=== PATIENT | male | born 1990 | race African-American/Black ===

== ENCOUNTER 2023-10-02 08:52 | Emergency (ER) | payer OTHER ==
[2023-10-02 09:21] VITALS: RESP 18
[2023-10-02] MEDS: KETOROLAC 15 MG/ML 1 ML VIAL IM STA (09:34)
[2023-10-02] MEDS: MORPHINE SULFATE 4 MG/ML SYRINGE IM STA (09:36)
--- NOTE | 2023-10-02 09:40 | ED ---
GI Bleed HPI - General Chief complaint: GI Bleed Stated complaint: Urogenital Time Seen by Provider: 10/02/23 08:56 Source: patient, RN notes reviewed Mode of arrival: ambulatory Limitations: no limitations - History of Present Illness Initial comments: This is a 33-year-old male who presents to the emergency department for hemorrhoids. Patient states that he has been dealing with hemorrhoids for years, but was incarcerated for 7 years and has not been able to deal with them until he was released a few months ago. He went to urgent care about a month ago and was given a cream for the hemorrhoids. States that this has been somewhat helpful for his pain, however they are still very bothersome. He has bleeding in his undergarments as well from the hemorrhoids. He has never had surgery or had a surgical consultation regarding the hemorrhoids. - Related Data Previous Rx's Medication Instructions Recorded Ibuprofen [Motrin] 800 mg PO Q8H PRN #30 tab 10/02/23 Lidocaine [Lidocaine Rectal Cream 1 applic TOPICAL TID PRN #30 gram 10/02/23 5%] Phenyleph/Mineral Oil/Petrolat 1 applic RECTAL QID #28 gm 10/02/23 [Preparation H Ointment] witch Tyrell [Preparation H 1 applic TOPICAL DIRECTED #100 10/02/23 Pad/Wipe] pad Allergies Allergy/AdvReac Type Severity Reaction Status Date / Time No Known Allergies Allergy Verified 10/02/23 08:55 Review of Systems ROS Statement: Those systems with pertinent positive or pertinent negative responses have been documented in the HPI. ROS Other: All systems not noted in ROS Statement are negative. Past Medical History Past Medical History: No Reported History History of Any Multi-Drug Resistant Organisms: None Reported Past Surgical History: No Surgical Hx Reported Past Psychological History: No Psychological Hx Reported General Exam Limitations: no limitations General appearance: alert, in no apparent distress Head exam: Present: atraumatic, normocephalic, normal inspection Respiratory exam: Present: normal lung sounds bilaterally. Absent: respiratory distress, wheezes, rales, rhonchi, stridor Cardiovascular Exam: Present: regular rate, normal rhythm, normal heart sounds. Absent: systolic murmur, diastolic murmur, rubs, gallop, clicks Extremities exam: Present: other (Several external hemorrhoids without any evidence of thrombosis. No active bleeding.) Neurological exam: Present: alert, oriented X3, CN II-XII intact Psychiatric exam: Present: normal affect, normal mood Skin exam: Present: warm, dry, intact, normal color. Absent: rash Course Vital Signs 10/02/23 10/02/23 08:53 10:12 Temperature 98.2 F 98.1 F Pulse Rate 74 75 Respiratory 18 18 Rate Blood Pressure 145/87 139/87 O2 Sat by Pulse 99 99 Oximetry Medical Decision Making - Medical Decision Making This is a 33 year old male who presents to the emergency department for hemorrhoids. Was pt. sent in by a medical professional or institution? @ -No Did you speak to anyone other than the patient for history? @ -No Did you review nursing and triage notes? @ -Yes, and I agree, it is accurate with regards to the patient's symptoms. Were old charts reviewed? @ -No Differential Diagnosis? @ -Differential Hemorrhoids: Hemorrhoids, skin tags, abscess, anal fissure, this is not meant to be an all- inclusive list. EKG interpreted by me (3pts min.)? @ -Not obtained X-rays interpreted by me (1pt min.)? @ -Not obtained CT interpreted by me (1pt min.)? @ -Not obtained U/S interpreted by me (1pt. min.)? @ -Not obtained What testing was considered but not performed? (CT, X-rays, U/S, labs)? Why? @ -None What meds were considered but not given? Why? @ -None Did you discuss the management of the patient with other professionals? @ -No Did you reconcile home meds? @ -No Was smoking cessation discussed for >3mins.? @ -No Was critical care preformed (if so, how long)? @ -No Were there social determinants of health that impacted care today? How? (Homelessness, low income, unemployed, alcoholism, drug addiction, transportation, low edu. Level, literacy, decrease access to med. care, assisted, rehab)? @ -No Was there de-escalation of care discussed even if they declined? (Discuss DNR or withdrawal of care, Hospice)? @ -No What co-morbidities impacted this encounter? (DM, HTN, Smoking, COPD, CAD, Cancer, CVA, Hep., AIDS, mental health diagnosis, sleep apnea, morbid obesity)? @ -None Was patient admitted / discharged? @ -Discharged. Physical examination consistent with external hemorrhoids. There was no active bleeding and these were not thrombosed. Discussed with the patient that we cannot do any intervention on these in the emergency department because they are not thrombosed. Proctosol cream administered in the emergency department and he was given a prescription for rectal lidocaine, Preparation H, witch tyrell pads, and ibuprofen. Advised [id number] Benefiber, as we discussed that constipation and straining will make his symptoms worse. We also discussed sitz bath's. Information for general surgery follow-up provided as well. He is advised to contact them tomorrow morning for further management. Undiagnosed new problem with uncertain prognosis? @ -None Drug Therapy requiring intensive monitoring for toxicity (Heparin, Nitro, Insulin, Cardizem)? @ -None Were any procedures done? @ -None Diagnosis/symptom? @ -External hemorrhoids Acute, or Chronic, or Acute on Chronic? @ -Chronic Uncomplicated (without systemic symptoms) or Complicated (systemic symptoms)? @ -Uncomplicated Side effects of treatment? @ -None Exacerbation, Progression, or Severe Exacerbation] @ -Progression Poses a threat to life or bodily function? @ -No Return precautions reviewed in depth, the patient is instructed to return to the emergency department with any new, worsening, or concerning symptoms. Patient verbalized understanding. This case was discussed in detail with the attending ED physician, Dr. Leonard. Presentation, findings, and treatment plan discussed in detail as well. Disposition Clinical Impression: External hemorrhoids Disposition: HOME SELF-CARE Instructions (If sedation given, give patient instructions): Hemorrhoids (ED) Additional Instructions: Return to the emergency department with any new, worsening, or concerning symptoms. Alternate with ibuprofen and Tylenol as needed for pain relief. Apply the Proctosol cream provided here up to 4 times daily, or after each bowel movement. You can use the rectal lidocaine cream and Preparation H cream prescribed 4-5 times daily or after every bowel movement as well. Make sure you also use the witch tyrell pads after every bowel movement. Use sitz baths and make sure you take [id number] stool softeners or fiber, as constipation and straining will make the symptoms worse. Contact the general surgeon as listed below. Let them know that you were seen in the emergency department for painful external hemorrhoids, and they will schedule you for a follow-up appointment. Follow up with your primary care provider in 1-2 days. Prescriptions: Lidocaine [Lidocaine Rectal Cream 5%] 1 applic TOPICAL TID PRN #30 gram PRN Reason: Pain Ibuprofen [Motrin] 800 mg PO Q8H PRN #30 tab PRN Reason: Pain Phenyleph/Mineral Oil/Petrolat [Preparation H Ointment] 1 applic RECTAL QID #28 gm witch Tyrell [Preparation H Pad/Wipe] 1 applic TOPICAL DIRECTED #100 pad Is patient prescribed a controlled substance at d/c from ED?: No Referrals: None,Stated [Primary Care Provider] - 1-2 days Luther Cowan MD [STAFF PHYSICIAN] - 1-2 days Time of Disposition: 09:51
[2023-10-02] MEDS ORDERED: ACET/COD 300 MG/30 MG STARTER PACK 6 TAB BTL PO STA (09:48)
[2023-10-02] MEDS: HYDROCORTISONE 2.5% RECTAL CREAM 30 GM TUBE RECTAL ONE (10:06)
[2023-10-02] MEDS: LIDOCAINE 4% CREAM 5 GM TUBE TOPICAL ONE (10:06)
[2023-10-02 10:55] VITALS: BP 139/87; PULSE 75; TEMP 98.1
== END 2023-10-02 10:15 | disposition home or self-care (01) ==
LOC: EC 08:52
DX: K64.4 Residual hemorrhoidal skin tags (principal)
CPT/HCPCS: 99284; 96372 ×2; J2270; J1885

== ENCOUNTER 2023-10-13 07:18 | Day surgery (SDC) | payer OTHER ==
[2023-10-13] MEDS ORDERED: PROPOFOL 10 MG/ML 20 ML VIAL IV ONE (08:16)
[2023-10-13] MEDS ORDERED: LIDOCAINE 1% INJ 10MG/ML (20 ML MDV) ONE (08:16)
[2023-10-13 08:19] VITALS: TEMP 97.3
[2023-10-13] MEDS: LACTATED RINGERS 1,000 ML IV SCH (08:23)
[2023-10-13] MEDS: IV FLUID CONTINUATION 1,000 ML IV ONE (08:34)
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
--- NOTE | 2023-10-13 09:08 | P.OP ---
Date of Procedure: 10/13/23 Preoperative Diagnosis: GI bleed Hemorrhoids Postoperative Diagnosis: internal and external hemorrhoids Normal colon Procedure(s) Performed: colonoscopy Anesthesia: MAC Surgeon: Luther Cowan Pathology: none sent Condition: stable Disposition: PACU Description of Procedure: the patient's placed on the endoscopy table in the lateral position. He received IV sedation. Digital rectal exam was performed. This revealed internal and external hemorrhoids. Flexible colonoscope was then placed patient anus and passed throughout the entire colon. Ileocecal valve was visualized. The cecum, ascending transverse colon appeared normal. The descending and sigmoid colon appeared normal. Scope summer back to the rectum and this appeared normal. Scope withdrawn the anus and internal and external hemorrhoids were noted. Scope was withdrawn for patient. Presumed patient may have had bleeding passed from hemorrhoids.
[2023-10-13 09:30] VITALS: BP 107/70; PULSE 61; RESP 20
[2023-10-13] MEDS: IBUPROFEN 600 MG TAB PO STA (09:46)
== END 2023-10-13 10:08 | disposition home or self-care (01) ==
LOC: ORWHC2ENDO 07:18
PROVIDERS: ATTEND Surgery
DX: K64.8 Other hemorrhoids (principal); K64.4 Residual hemorrhoidal skin tags; F12.90 Cannabis use, unspecified, uncomplicated; F17.200 Nicotine dependence, unspecified, uncomplicated; Z91.040 Latex allergy status; Z98.890 Other specified postprocedural states
CPT/HCPCS: 45378; J2001; J2704

== ENCOUNTER 2023-10-19 10:32 | Day surgery (SDC) | payer OTHER ==
[~2023-10-19 10:32] MED LIST: Pre Op ABX Message 1 EACH MISC MISCELLANE ONE
[2023-10-19] MEDS ORDERED: LIDOCAINE 1% (10MG/ML) FOR IV START INTRADERMA PRN (10:45)
[2023-10-19] MEDS ORDERED: fentaNYL (PF) 50 MCG/ML 2 ML AMP IVP PRN (10:45)
[2023-10-19] MEDS ORDERED: MIDAZOLAM 2 MG/2 ML VIAL IV PRN (10:45)
[2023-10-19 11:04] VITALS: TEMP 98.3
[2023-10-19] MEDS: LACTATED RINGERS 1,000 ML IV SCH (11:18)
[2023-10-19] MEDS: ONDANSETRON 4 MG/2 ML VIAL IVP ONE (11:19)
[2023-10-19] MEDS: DEXAMETHASONE SOD PHOSPHATE 4 MG/ML 1 ML VIAL IV ONE (11:20)
[2023-10-19] MEDS: IV FLUID CONTINUATION 1,000 ML IV ONE (11:21)
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
[2023-10-19] MEDS ORDERED: SUCCINYLCHOLINE CHLORIDE 200 MG/10 ML VIAL IV ONE (12:04)
[2023-10-19] MEDS ORDERED: KETAMINE HCL IN 0.9 % NACL 50 MG/5 ML SYRINGE ONE (12:04)
[2023-10-19] MEDS ORDERED: MIDAZOLAM 2 MG/2 ML VIAL ONE (12:04)
[2023-10-19] MEDS ORDERED: LIDOCAINE 1% INJ 10MG/ML (20 ML MDV) ONE (12:04)
[2023-10-19] MEDS ORDERED: KETOROLAC 15 MG/ML 1 ML VIAL ONE (12:04)
[2023-10-19] MEDS ORDERED: PROPOFOL 10 MG/ML 20 ML VIAL IV ONE (12:04)
[2023-10-19] MEDS ORDERED: fentaNYL (PF) 50 MCG/ML 2 ML AMP ONE (12:04)
[2023-10-19] MEDS: SODIUM CHLORIDE 0.9% 50 ML with ceFAZolin 2,000 MG IV ONE (12:09)
[2023-10-19] MEDS: LIDOCAINE 1%-EPI 1:100,000 20 ML VIAL SQ ONE (12:40)
--- NOTE | 2023-10-19 12:45 | P.OP ---
Date of Procedure: 10/19/23 Preoperative Diagnosis: internal Hemorrhoids Postoperative Diagnosis: internal and external hemorrhoids Procedure(s) Performed: hemorrhoidectomy Anesthesia: SHERRY Surgeon: Luther Cowan Estimated Blood Loss (ml): 5 Pathology: other (hemorrhoids) Condition: stable Disposition: PACU Description of Procedure: the patient's placed on the operative table in the prone jackknife position receiving general anesthesia. his anus was prepped and draped in usual sterile fashion. The anal retractors placed anus. The patient had a large left lateral hemorrhoidal column as well as a large right anterior and posterior hemorrhoidal column. Using the Allis clamp the left lateral hemorrhoidal column was grasped and then using the Harmonic scissors the hemorrhoid was performed. The right anterior and posterior hemorrhoid columns were dissected identical fashion. He was easily achieved with the Harmonic scissors and electrocautery. No bleeding was seen. The anus was packed with Gelfoam. Patient tolerated the procedure well. He was sent to recovery room in stable condition.
[2023-10-19] MEDS: HYDROmorphone 0.5 MG/0.5 ML SYRINGE IVP PRN (13:27)
[2023-10-19 15:01] VITALS: BP 119/70; PULSE 72; RESP 18
== END 2023-10-19 15:19 | disposition home or self-care (01) ==
LOC: OR 10:32
PROVIDERS: ATTEND Surgery
DX: K64.8 Other hemorrhoids (principal); K64.4 Residual hemorrhoidal skin tags; F12.90 Cannabis use, unspecified, uncomplicated; Z91.040 Latex allergy status
CPT/HCPCS: 88304; 46260; J2250; J0330; J1100; J2405; J0690; J2001; J3010; J1885; J2704; J1170

== ENCOUNTER 2023-10-21 18:41 | Emergency (ER) | payer OTHER ==
[2023-10-21 18:56] VITALS: TEMP 98.8
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
--- NOTE | 2023-10-21 20:21 | XR ---
KUB. HISTORY: Abdominal pain. The patient COMPARISON: None. TECHNIQUE: 2 upright views of the abdomen were obtained. FINDINGS: The lung bases are clear. There is no free intraperitoneal air beneath the diaphragm. The bowel gas pattern is nonspecific and there is no evidence of obstruction. No suspicious abdominal or pelvic calcifications are seen. The osseous structures are intact. IMPRESSION: Nonspecific abdomen without evidence of free air or obstruction. There is a mild amount of stool with in the colon.
[2023-10-21 21:53] VITALS: BP 130/79; PULSE 70; RESP 18
[2023-10-21] MEDS: KETOROLAC 15 MG/ML 1 ML VIAL IM STA (22:13)
== END 2023-10-21 22:23 | disposition home or self-care (01) ==
LOC: EC 18:41
DX: K59.00 Constipation, unspecified (principal); K64.4 Residual hemorrhoidal skin tags; Z91.040 Latex allergy status
CPT/HCPCS: 74018; 99284; 96372; J1885

== ENCOUNTER 2023-10-25 19:09 | Emergency (ER) | payer OTHER ==
[2023-10-25 19:18] VITALS: RESP 18
--- NOTE | 2023-10-25 20:00 | XR ---
EXAMINATION TYPE: XR KUB DATE OF EXAM: 10/25/2023 7:37 PM CLINICAL INDICATION:Male, 33 years old with history of constipation; [facility] COMPARISON: None. TECHNIQUE: One radiographic view of the abdomen was obtained. FINDINGS: Moderate stool burden throughout the colon. The bowel gas pattern is nonspecific without di lated loops of small or large bowel. There is no evidence for organomegaly or pneumoperitoneum. The osseous structures are intact. No abnormal calcifications are present. Fecal material and gas are de monstrated throughout the colon and rectum. IMPRESSION: Moderate stool throughout the colon, , otherwise, Nonspecific bowel gas pattern without radiographic evidence for acute process.
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
[2023-10-26 00:38] VITALS: BP 130/84; PULSE 82; TEMP 98.4
== END 2023-10-26 00:38 | disposition home or self-care (01) ==
LOC: EC 19:09
DX: K59.00 Constipation, unspecified (principal); Z48.01 Encounter for change or removal of surgical wound dressing; F17.290 Nicotine dependence, other tobacco product, uncomplicated; Z91.040 Latex allergy status; Z87.19 Personal history of other diseases of the digestive system
CPT/HCPCS: 74018; 99284

== ENCOUNTER 2023-12-05 09:50 | Emergency (ER) | payer OTHER | END 2023-12-05 13:14 | LOC: EC 09:50 | DX: M62.838 Other muscle spasm (principal) | CPT/HCPCS: 80053; 83735; 85025; 99283 ==

== ENCOUNTER → 2024-03-23 | Outpatient (CLI) | payer OTHER ==
[2024-03-23 20:18] LABS: Basophils # (A) 0.07 X 10*3/uL (0.00-0.10); Basophils % (A) 1.3 %; Eosinophils # (A) 0.06 X 10*3/uL (0.04-0.35); Eosinophils % (A) 1.1 %; HCT 41.5 % (39.6-50.0); HGB 13.1 g/dL (13.0-17.0); Lymphocytes # (A) 1.88 X 10*3/uL (0.90-5.00); Lymphocytes % (A) 34.9 %; MCH 26.9 pg (27.0-32.0); MCHC 31.6 g/dL (32.0-37.0); MCV 85.2 FL (80.0-97.0); Mean Platelet Volume 13.1 FL (9.5-12.2); Monocytes # (A) 0.48 X 10*3/uL (0.20-1.00); Monocytes % (A) 8.9 %; NRBC Per 100 WBC 0 X 10*3/uL (0.00-0.01); Neutrophils # (A) 2.88 X 10*3/uL (1.80-7.70); Neutrophils % (A) 53.6 %; Platelet Count 212 X 10*3/uL (140-440); RBC 4.87 X 10*6/uL (4.40-5.60); RDW 18.9 % (11.5-14.5); WBC 5.38 X 10*3/uL (4.50-10.00)
[2024-03-23 20:31] LABS: ALT 63 U/L (10-49); AST 55 U/L (14-35); Albumin 4.7 g/dL (3.8-4.9); Albumin/Globulin Ratio 1.62 Ratio (1.60-3.17); Alkaline Phosphatase 76 U/L (41-126); Blood Urea Nitrogen 8.8 mg/dL (9.0-27.0); Calcium 9.7 mg/dL (8.7-10.3); Carbon Dioxide 24.8 mmol/L (21.6-31.8); Chloride 102 mmol/L (96-109); Chol/HDL Ratio 1.77 Ratio; Globulin 2.9 g/dL (1.6-3.3); Glucose 80 mg/dL (70-110); Magnesium 1.8 mg/dL (1.5-2.4); Potassium 4.3 mmol/L (3.5-5.5); Sodium 140 mmol/L (135-145); Total Bilirubin 0.9 mg/dL (0.3-1.2); Total Protein 7.6 g/dL (6.2-8.2); VLDL Calculation 9.04 mg/dL (5.00-40.00)
== END | disposition home or self-care (01) ==
LOC: LABWHC1 12:25
PROVIDERS: ATTEND Internal Medicine
DX: R20.0 Anesthesia of skin (principal); R20.2 Paresthesia of skin
CPT/HCPCS: 36415; 80053; 80061; 83735; 84443; 85025

== ENCOUNTER → 2024-03-27 | Outpatient (CLI) | payer OTHER ==
[2024-03-27 13:28] LABS: Anisocytosis Slight; Basophils % (A) 1 %; Eosinophils # (A) 0.1 k/uL (0-0.7); Eosinophils % (A) 2 %; HCT 43.8 % (39.0-53.0); HGB 13.7 gm/dL (13.0-17.5); Hypochromasia Slight; Lymphocytes # (A) 1.7 k/uL (1.0-4.8); Lymphocytes % (A) 40 %; MCH 27.6 pg (25.0-35.0); MCHC 31.3 g/dL (31.0-37.0); MCV 88.2 fL (80.0-100.0); Monocytes # (A) 0.3 k/uL (0-1.0); Monocytes % (A) 6 %; Neutrophils % (A) 48 %; Platelet Count 237 k/uL (150-450); RBC 4.97 m/uL (4.30-5.90); RDW 17.7 % (11.5-15.5); WBC 4.2 k/uL (3.8-10.6)
[2024-03-27 20:03] LABS: % Iron Saturation 7.09 (15.00-50.00)
== END | disposition home or self-care (01) ==
LOC: LABWHC1 12:08
PROVIDERS: ATTEND Internal Medicine
DX: R79.89 Other specified abnormal findings of blood chemistry (principal)
CPT/HCPCS: 36415; 82306; 82607; 82746; 83540; 83550; 84466; 85025

== ENCOUNTER → 2024-05-16 | Outpatient (CLI) | payer OTHER ==
--- NOTE | 2024-05-16 11:33 | US ---
EXAMINATION TYPE: US liver DATE OF EXAM: 05/16/2024 COMPARISON: NONE CLINICAL INDICATION: Male, 34 years old with history of R74.8 ELEVATED LIVER ENZYMES; Elevated liver enzymes TECHNIQUE: Grayscale and color Doppler imaging of the right upper quadrant was performed. FINDINGS: EXAM MEASUREMENTS: Liver Length: 15.6 cm Gallbladder Wall: 0.3 cm CBD: 0.2 cm Right Kidney: 10.0 x 4.4 x 4.1 cm Pancreas: visualized portions appear heterogeneous Liver: Increased attenuation without focal mass, dilated duct or cyst. Gallbladder: no evidence of hydronephrosis Evidence for sonographic Rocha's sign: no CBD: appears wnl as visualized Right Kidney: no evidence of hydronephrosis IMPRESSION: 1. No evidence for acute process. 2. Hepatic steatosis. [facility], , 05/16/2024 11:30 AM
== END | disposition home or self-care (01) ==
LOC: RADUSWWP 10:10
PROVIDERS: ATTEND Internal Medicine
DX: R74.8 Abnormal levels of other serum enzymes (principal); K76.0 Fatty (change of) liver, not elsewhere classified
CPT/HCPCS: 76705